=== PATIENT | female | born 2000 | race Hispanic/Latino ===

== ENCOUNTER 2021-03-24 21:14 | Emergency (ER) | payer OTHER ==
[2021-03-24] MEDS ORDERED: Ondansetron ODT 4 MG TAB ONE (22:27)
[2021-03-24 23:00] LABS: Bacteria/HPF 1+ HPF (None Seen); Bilirubin Negative (Negative); Blood, Urine Negative (Negative); Clarity Clear (Clear); Glucose, Urine (Dipstick) Normal (Negative); Ketone, Urine Negative (Negative); Leukocyte 75 Leu/uL (Negative); Mucous/LPF Rare LPF (<2+); Nitrite Negative (Negative); Protein, Urine (Dipstick) Negative (Neg-Trace); RBC/HPF 0-3 HPF (0-3); Specific Gravity, Urine 1.024 (1.002-1.036); Squamous Epithelial 0-3 HPF (0-3); Urobilinogen Normal mg/dL (Less than 2); WBC/HPF 0-3 HPF (0-3); pH, Urine 6.5 (5.0-9.0)
[2021-03-24 23:00] LABS: Pregnancy Test - Urine (BHCG) Negative (Negative); Pregu Control Background? CLEAR/WHITE (CLR/WHITE); Pregu Control Bar Appear? YES (CONTROL BAR); Specific Gravity 1.024 (1.002-1.036)
== END 2021-03-25 00:03 | disposition home or self-care (01) ==
LOC: ERS 21:14
DX: R11.2 Nausea with vomiting, unspecified (principal); R42 Dizziness and giddiness; R29.700 NIHSS score 0; F17.200 Nicotine dependence, unspecified, uncomplicated
CPT/HCPCS: 81003; 81015; 81025; 93005; Q0162

== ENCOUNTER 2024-03-01 14:00 | Emergency (ER) | payer OTHER, SELFPAY | END 2024-03-01 15:20 | disposition home or self-care (01) | LOC: ERS 14:00 | DX: F41.0 Panic disorder [episodic paroxysmal anxiety] (principal); F17.290 Nicotine dependence, other tobacco product, uncomplicated | CPT/HCPCS: 93005; 99284 ==